=== PATIENT | female | born 1990 | race American Indian/Alaskan Native ===

== ENCOUNTER 2018-04-25 14:00 | Emergency (ER) | payer SELFPAY ==
[2018-04-25 14:11] VITALS: BP 138/95
--- NOTE | 2018-04-25 16:35 | Emergency Department Report ---
ED ENT HPI - General Chief complaint: Sore Throat Stated complaint: TONSIL/PAIN Source: patient Mode of arrival: Ambulatory Limitations: No Limitations - History of Present Illness Initial comments: This is a 27-year-old -[place] female that presents with sore throat for 2 weeks. Patient states she went to repeat my urgent care 2 weeks ago and was placed on steroids. Patient states. Steroids improve ability to swallow but it is sore and she completed symptoms return. She continues to have a fever , sore throat and swollen lymph nodes. Patient states she's taken ibuprofen and Tylenol with no improvement of symptoms. She reports unbearable pain with swallowing and pain to the left ear. She admits to ability to tolerate liquids and solids as normal. Patient denies pain, shortness of breath, body aches, chills, and cough. MD complaint: sore throat Onset/Timin -: week(s) Location: throat Severity: moderate Severity scale (0 -10): 6 Quality: aching Consistency: constant Improves with: none Worsens with: swallowing Associated Symptoms: fever, pain with swallowing, sore throat. denies: cough, gum swelling, toothache, tinnitus, hearing loss, discharge from ear, rhinorrhea - Related Data Previous Rx's Medication Instructions Recorded Last Taken Type Penicillin V Potassium 500 mg PO BID #20 tablet 04/25/18 Unknown Rx Allergies Allergy/AdvReac Type Severity Reaction Status Date / Time sumatriptan [From Imitrex] Allergy Shortness Verified 04/25/18 14:06 of Breath ED Dental HPI - General Chief complaint: Sore Throat Stated complaint: TONSIL/PAIN Source: patient Mode of arrival: Ambulatory Limitations: No Limitations - Related Data Previous Rx's Medication Instructions Recorded Last Taken Type Penicillin V Potassium 500 mg PO BID #20 tablet 04/25/18 Unknown Rx Allergies Allergy/AdvReac Type Severity Reaction Status Date / Time sumatriptan [From Imitrex] Allergy Shortness Verified 04/25/18 14:06 of Breath ED Review of Systems ROS: Stated complaint: TONSIL/PAIN Other details as noted in HPI Constitutional: fever. denies: chills ENT: ear pain, throat pain Respiratory: denies: cough, shortness of breath, wheezing Cardiovascular: denies: chest pain, palpitations Gastrointestinal: denies: abdominal pain, nausea, diarrhea Neurological: denies: headache, weakness, paresthesias Psychiatric: denies: anxiety, depression ED Past Medical Hx - Past Medical History Previous Medical History?: No - Surgical History Past Surgical History?: Yes Additional Surgical History: appendectomy cardiac ablation - Social History Smoking Status: Never Smoker Substance Use Type: Alcohol - Medications Home Medications: Home Medications Medication Instructions Recorded Confirmed Last Taken Type Penicillin V Potassium 500 mg PO BID #20 tablet 04/25/18 Unknown Rx ED Physical Exam - General Limitations: No Limitations General appearance: alert, in no apparent distress - ENT ENT exam: Present: mucous membranes moist, TM's normal bilaterally, normal external ear exam. Absent: normal orophraynx (erythematous posterior pharynx, uvula midline, tonsils and large without exudate) - Respiratory Respiratory exam: Present: normal lung sounds bilaterally. Absent: respiratory distress - Cardiovascular Cardiovascular Exam: Present: regular rate, normal rhythm. Absent: systolic murmur, diastolic murmur, rubs, gallop - GI/Abdominal GI/Abdominal exam: Present: soft, normal bowel sounds. Absent: organomegaly, mass - Neurological Exam Neurological exam: Present: alert, oriented X3 - Psychiatric Psychiatric exam: Present: normal affect, normal mood ED Course Vital Signs 04/25/18 14:07 Temperature 99.1 F Pulse Rate 113 H Respiratory 16 Rate Blood Pressure 138/95 O2 Sat by Pulse 97 Oximetry ED Medical Decision Making - Medical Decision Making This is a 27 y.o. female that presents with sore throat and bilateral ear pain for 2 weeks. Patient examined by me and stable. No distress noted. Vitals stable. Given bicillin I-A 1.2 mL IM once in ER. Patient will be treated for acute pharyngitis according to [facility] criteria no labs obtained. Start penicillin V 500 mg po bid x 10 days. Take Tylenol or ibuprofen for pain. Discussed plan with patient and he agreed with plan to treat outpatient. Discharged home. Return to work tomorrow. Follow up with PCP in 48-72 hours. Critical care attestation.: If time is entered above; I have spent that time in minutes in the direct care of this critically ill patient, excluding procedure time. ED Disposition Clinical Impression: Sore throat Acute pharyngitis Qualifiers: Pharyngitis/tonsillitis etiology: unspecified etiology Qualified Code(s): J02.9 - Acute pharyngitis, unspecified Disposition: DC-01 TO HOME OR SELFCARE Is pt being admited?: No Does the pt Need Aspirin: No Condition: Stable Instructions: Strep Throat (ED) Additional Instructions: Expect symptoms to improve within 3 or 4 days. There is no need for bed rest or isolation. Use Tylenol or ibuprofen for symptoms of sore throat, headache, and fever. Return to work in 24 hours of taking antibiotics. Follow up with Primary Care Provider in 48-72 hours. Prescriptions: Penicillin V Potassium 500 mg PO BID #20 tablet Referrals: [facility] [Outside] - 3-5 Days [facility] [Outside] - 3-[address] [facility] [Outside] - 3-5 Days Forms: Work/School Release Form(ED) Time of Disposition: 16:46 Print Language: LITHUANIAN
[2018-04-25] MEDS ORDERED: BICILLIN L-A IM ONE (16:37)
== END 2018-04-25 17:16 | disposition home or self-care (01) ==
LOC: ED 14:00
DX: J02.9 Acute pharyngitis, unspecified (principal); Z90.89 Acquired absence of other organs; Z88.8 Allergy status to other drugs, medicaments and biological substances
CPT/HCPCS: 96372; 99282; J0561

== ENCOUNTER 2018-04-26 02:00 | Emergency (ER) | payer SELFPAY ==
[2018-04-26] MEDS ORDERED: DECADRON IV ONE (03:25)
[2018-04-26] MEDS ORDERED: CLEOCIN 900 MG/50 mL 900 MG/50 ML BAG IV ONE (03:25)
[2018-04-26] MEDS ORDERED: TORADOL IV ONE (03:25)
[2018-04-26] MEDS ORDERED: NACL 0.9% 1000 ML 1,000 ML IV ONE ×2 (03:25→04:26)
[2018-04-26] MEDS ORDERED: LIDOCAINE VISCOUS 2% PO ONE (03:27)
[2018-04-26] MEDS ORDERED: ZOFRAN IV ONE (04:26)
--- NOTE | 2018-04-26 04:33 | Emergency Department Report ---
ED ENT HPI - General Chief complaint: Sore Throat Stated complaint: SORE THROAT Time Seen by Provider: 04/26/18 03:11 Source: patient Mode of arrival: Ambulatory Limitations: No Limitations - History of Present Illness MD complaint: sore throat Onset/Timin -: week(s) Severity: moderate Severity scale (0 -10): 6 Quality: burning, sharp Consistency: constant Improves with: none Worsens with: swallowing, eating (1. Tylenol has had multiple both Tylenol 50.) Associated Symptoms: fever, pain with swallowing, sore throat - Related Data Previous Rx's Medication Instructions Recorded Last Taken Type Penicillin V Potassium 500 mg PO BID #20 tablet 04/25/18 Unknown Rx Benzocaine/Menth/Cetylpyrd 8 each MM Q2H #3 packet 04/26/18 Unknown Rx [Cepacol X Strength] Clindamycin [Clindamycin CAP] 300 mg PO Q6H #40 capsule 04/26/18 Unknown Rx Dexamethasone [Decadron] 4 mg PO Q12H 3 Days #6 tablet 04/26/18 Unknown Rx Ibuprofen 800 mg PO TID PRN #30 tablet 04/26/18 Unknown Rx Allergies Allergy/AdvReac Type Severity Reaction Status Date / Time sumatriptan [From Imitrex] Allergy Shortness Verified 04/25/18 14:06 of Breath ED Dental HPI - General Chief complaint: Sore Throat Stated complaint: SORE THROAT Time Seen by Provider: 04/26/18 03:11 Source: patient Mode of arrival: Ambulatory Limitations: No Limitations - Related Data Previous Rx's Medication Instructions Recorded Last Taken Type Penicillin V Potassium 500 mg PO BID #20 tablet 04/25/18 Unknown Rx Benzocaine/Menth/Cetylpyrd 8 each MM Q2H #3 packet 04/26/18 Unknown Rx [Cepacol X Strength] Clindamycin [Clindamycin CAP] 300 mg PO Q6H #40 capsule 04/26/18 Unknown Rx Dexamethasone [Decadron] 4 mg PO Q12H 3 Days #6 tablet 04/26/18 Unknown Rx Ibuprofen 800 mg PO TID PRN #30 tablet 04/26/18 Unknown Rx Allergies Allergy/AdvReac Type Severity Reaction Status Date / Time sumatriptan [From Imitrex] Allergy Shortness Verified 04/25/18 14:06 of Breath ED Review of Systems ROS: Stated complaint: SORE THROAT Other details as noted in HPI Constitutional: denies: chills, fever Eyes: denies: eye pain, eye discharge, vision change ENT: throat pain (bilaterally L referred to). denies: ear pain Respiratory: denies: cough, shortness of breath, wheezing Cardiovascular: denies: chest pain, palpitations Endocrine: no symptoms reported Gastrointestinal: denies: abdominal pain, nausea, diarrhea Genitourinary: denies: urgency, dysuria, discharge Musculoskeletal: denies: back pain, joint swelling, arthralgia Skin: denies: rash, lesions Neurological: denies: headache, weakness, paresthesias Psychiatric: denies: anxiety, depression Hematological/Lymphatic: denies: easy bleeding, easy bruising ED Past Medical Hx - Past Medical History Previous Medical History?: Yes Additional medical history: SVT - Surgical History Past Surgical History?: Yes Additional Surgical History: appendectomy cardiac ablation - Social History Smoking Status: Never Smoker Substance Use Type: Alcohol, Marijuana - Medications Home Medications: Home Medications Medication Instructions Recorded Confirmed Last Taken Type Penicillin V Potassium 500 mg PO BID #20 tablet 04/25/18 Unknown Rx Benzocaine/Menth/Cetylpyrd 8 each MM Q2H #3 packet 04/26/18 Unknown Rx [Cepacol X Strength] Clindamycin [Clindamycin CAP] 300 mg PO Q6H #40 capsule 04/26/18 Unknown Rx Dexamethasone [Decadron] 4 mg PO Q12H 3 Days #6 tablet 04/26/18 Unknown Rx Ibuprofen 800 mg PO TID PRN #30 tablet 04/26/18 Unknown Rx ED Physical Exam - General Limitations: No Limitations General appearance: alert, in no apparent distress - Head Head exam: Present: atraumatic, normocephalic, normal inspection - Eye Eye exam: Present: normal appearance, PERRL, EOMI Pupils: Present: normal accommodation - ENT ENT exam: Present: normal exam, normal orophraynx, mucous membranes moist, TM's normal bilaterally, normal external ear exam - Expanded ENT Exam Expanded Throat exam: Positive: tonsillar erythema, tonsillomegaly, tonsillar exudate. Negative: R peritonsillar mass, L peritonsillar mass - Neck Neck exam: Present: normal inspection, full ROM, lymphadenopathy. Absent: tenderness, meningismus, thyromegaly - Respiratory Respiratory exam: Present: normal lung sounds bilaterally. Absent: respiratory distress, wheezes, rhonchi, chest wall tenderness - Cardiovascular Cardiovascular Exam: Present: regular rate, normal rhythm, normal heart sounds. Absent: systolic murmur, diastolic murmur, rubs, gallop - GI/Abdominal GI/Abdominal exam: Present: soft, normal bowel sounds. Absent: bruit, hernia - Rectal Rectal exam: Present: deferred - Extremities Exam Extremities exam: Present: normal inspection, full ROM. Absent: tenderness - Back Exam Back exam: Present: normal inspection, full ROM. Absent: tenderness - Neurological Exam Neurological exam: Present: alert, oriented X3, reflexes normal - Psychiatric Psychiatric exam: Present: normal affect, normal mood - Skin Skin exam: Present: warm, dry, intact, normal color. Absent: rash ED Course Vital Signs 04/26/18 02:09 Temperature 98.3 F Pulse Rate 113 H Respiratory 16 Rate Blood Pressure 149/92 O2 Sat by Pulse 97 Oximetry ED Medical Decision Making - Medical Decision Making This is bacterial pharyngitis failed treatment with penicillin plan today Decadron IV clindamycin symptoms improved with same DC to home with clindamycin Decadron by mouth ibuprofen when necessary pain Cepacol throat lozenges patient will follow up with ENT in 2-3 days patient verbalizes agreement and understanding with same patient was DC'd home stable condition at this time Critical care attestation.: If time is entered above; I have spent that time in minutes in the direct care of this critically ill patient, excluding procedure time. ED Disposition Clinical Impression: Pharyngitis Qualifiers: Pharyngitis/tonsillitis etiology: unspecified etiology Qualified Code(s): J02.9 - Acute pharyngitis, unspecified Disposition: DC-01 TO HOME OR SELFCARE Is pt being admited?: No Does the pt Need Aspirin: No Condition: Good Instructions: Pharyngitis (ED) Prescriptions: Benzocaine/Menth/Cetylpyrd [Cepacol X Strength] 8 each MM Q2H #3 packet Clindamycin [Clindamycin CAP] 300 mg PO Q6H #40 capsule Dexamethasone [Decadron] 4 mg PO Q12H 3 Days #6 tablet Ibuprofen 800 mg PO TID PRN #30 tablet PRN Reason: pain fever Referrals: PRIMARY CARE, [Primary Care Provider] - 3-5 Days Forms: Work/School Release Form(ED) Time of Disposition: 06:16
[2018-04-26 06:28] VITALS: BP 119/71
== END 2018-04-26 06:26 | disposition home or self-care (01) ==
LOC: ED 02:00
DX: J02.9 Acute pharyngitis, unspecified (principal); I47.1 Supraventricular tachycardia; F12.10 Cannabis abuse, uncomplicated; Z90.49 Acquired absence of other specified parts of digestive tract; Z88.8 Allergy status to other drugs, medicaments and biological substances
CPT/HCPCS: 96365; 96375; 99283; J1100; J1885; J2405; J7030